=== PATIENT | female | born 1990 | race Hispanic/Latino ===

== ENCOUNTER 2024-10-08 15:14 | Emergency (ER) | payer OTHER ==
[~2024-10-08] VITALS: Ht 157.5 cm; Wt 77.5 kg
[2024-10-08 15:47] LABS: BASOPHILS 0.5 % (0-2); EOSINOPHILS 0.9 % (0-6); HEMATOCRIT 39.5 % (35.0-50.0); HEMOGLOBIN 13.6 g/dL (12.0-18.0); LYMPHOCYTES 27.8 % (24-44); MCH 31.8 (27-36); MCHC 34.3 g/dl (30-36); MCV 92.6 fl (81-99); MONOCYTES 8.1 % (0-12); NEUTROPHILS 62.7 % (39-80); PLATELET COUNT 250 K/uL (140-440); RBC 4.26 M/ul (4.3-5.7); RDW 14.7 (10.5-15.0)
[2024-10-08 16:06] LABS: ABO A; RH POSITIVE
[2024-10-08 16:09] LABS: ALBUMIN 3.7 g/dL (3.4-5.0); ALBUMIN/GLOBULIN RATIO 1.12 (1.1-2.4); ANION GAP 12.5 (7-21); BILIRUBIN, TOTAL 0.6 mg/dL (0.2-1.0); BUN/CREATININE RATIO 23.37 (6.0-28.6); CALCIUM 8.9 mg/dL (8.5-10.1); CREATININE, SERUM 0.77 mg/dL (0.55-1.02); POTASSIUM 3.5 mmol/L (3.5-5.1)
[2024-10-08 16:38] VITALS: BP 119/78
== END 2024-10-08 16:38 | disposition home or self-care (01) ==
LOC: ED 15:14
PROVIDERS: Emergency Medicine
DX: O03.9 Complete or unspecified spontaneous abortion without complication (principal)
CPT/HCPCS: 36415; 80053; 84702; 85025; 86900; 86901; 99284